=== PATIENT | female | born 1955 | race Caucasian/White ===

== ENCOUNTER → 2016-03-03 | Outpatient (CLI) | payer BC | LOC: MC.RAD 14:00 | DX: Z12.31 Encounter for screening mammogram for malignant neoplasm of breast (principal); N64.89 Other specified disorders of breast ==

== ENCOUNTER → 2016-03-06 | Outpatient (CLI) | payer BC | LOC: MC.RAD 10:30 | DX: N60.02 Solitary cyst of left breast (principal) ==

== ENCOUNTER → 2017-09-16 | Outpatient (CLI) | payer BC | LOC: MC.RAD 11:00 | DX: Z12.31 Encounter for screening mammogram for malignant neoplasm of breast (principal); N63.32 Unspecified lump in axillary tail of the left breast ==

== ENCOUNTER → 2018-02-25 | Outpatient (CLI) | payer BC | LOC: MC.RAD 09:00 | DX: N60.02 Solitary cyst of left breast (principal) ==

== ENCOUNTER → 2018-12-22 | Outpatient (CLI) | payer BC | LOC: MC.RAD 10-06 11:30 | DX: Z12.31 Encounter for screening mammogram for malignant neoplasm of breast (principal) ==

== ENCOUNTER → 2019-12-26 | Outpatient (CLI) | payer BC | LOC: MC.RAD 07:30 | DX: Z12.31 Encounter for screening mammogram for malignant neoplasm of breast (principal) ==

== ENCOUNTER → 2020-12-03 | Outpatient (CLI) | payer BC | LOC: MC.RAD 10:00 | DX: Z12.31 Encounter for screening mammogram for malignant neoplasm of breast (principal) ==